=== PATIENT | female | born 1960 | race Caucasian/White ===

== ENCOUNTER 2018-04-14 06:06 | Emergency (ER) | payer MEDICARE ==
[~2018-04-14] VITALS: Ht 175.3 cm; Wt 90.7 kg
[2018-04-14] MEDS ORDERED: TETANUS/DIPHTHERIA TOX ADULT 0.5 ML SYR IM STA (06:51)
[2018-04-14] MEDS ORDERED: KETOROLAC TROMETHAMINE 30 MG/ML VIAL IV STA (07:32)
[2018-04-14] MEDS ORDERED: DEXAMETHASONE SOD PHOS 10 MG/1 ML VIAL IV ONE (07:45)
--- NOTE | 2018-04-14 07:52 | Diagnostic Imaging Report ---
History:Trauma, fall Comparison studies: None Technique: Axial images were obtained through the maxillofacial region. Coronal and sagittal images reconstructed from the axial data. Dose modulation, iterative reconstruction, and/or weight based adjustment of the mA/kV was utilized to reduce the radiation dose to as low as reasonably achievable. Radiation dose: Total DLP: 372 mGy*cm. Estimated effective dose: DLP x 0.015 Intravenous contrast: None Findings: Soft tissues: Paranasal and nasal septal soft tissue hematomas. Bones: Mildly comminuted and displaced fractures of the superior nasal bones and mildly comminuted and mildly displaced fracture of the nasal septum. The nasal septum is deviated to the patient's right. Likely mildly displaced and possibly mildly comminuted fracture along the medial wall the maxillary sinus between the right middle and inferior turbinates, adjacent to an incidental 9 mm rightward projecting osseous spur along the nasal septum. Orbits: Globes: Intact Extra or intraconal abnormalities: None. Nasal cavity: Nasal septal hematoma due to fracture nasal septum as above. Hemorrhage throughout the nasal cavity, right greater than left. Hemorrhage extends into the nasopharynx which somewhat limits its evaluation. Paranasal sinuses: Small hemorrhage in the right right maxillary sinus as well as small hemorrhage or fluid in the right sphenoid sinus. Mild nonspecific mucosal thickening in the right inferior frontal sinus, right ethmoids as well as moderate nonspecific mucosal thickening with small retention cysts along the left maxillary sinus alveolar recess. Included brain: Dysmorphic appearance of the partially imaged inferior frontal horn of the right lateral ventricle. Unclear if findings are related to adjacent chronic insult or possibly degree of callosal/septal dysgenesis. 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 Incidental findings: Soft tissue density in the bilateral external auditory canals may reflect impacted cerumen. Right oropharyngeal tonsilloliths as sequela of previous infection/inflammation. Anterior marginal bridging osteophytes at C4-C5 and C5-C6 indent the prevertebral soft tissues. IMPRESSION: 1. Acute mildly comminuted and displaced fractures of the nasal bones and nasal septum and likely mildly displaced medial wall right maxillary sinus fracture with associated perinasal and nasal septal soft tissue hematomas and small right maxillary hemosinus. 2. Incidental dysmorphic ventricular configuration within the include brain as described. Nonemergent dedicated head CT or MRI may further evaluate if not previously performed. Signed by: Dr. Vinh Holcomb M.D. on 04/14/2018 7:49 AM
[2018-04-14 10:16] VITALS: BP 148/88
== END 2018-04-14 11:05 | disposition home or self-care (01) ==
LOC: ER 06:06
DX: S02.2XXB Fracture of nasal bones, initial encounter for open fracture (principal); S01.21XA Laceration without foreign body of nose, initial encounter; S00.33XA Contusion of nose, initial encounter; W01.0XXA Fall on same level from slipping, tripping and stumbling without subsequent striking against object, initial encounter; Y93.01 Activity, walking, marching and hiking; Y92.008 Other place in unspecified non-institutional (private) residence as the place of occurrence of the external cause
CPT/HCPCS: 12051; 70486; 90471; 90714; 99283; J1100; J1885